=== PATIENT | male | born 1945 | race Asian ===

== ENCOUNTER 2017-06-02 14:48 | Emergency (ER) | payer OTHER ==
[~2017-06-02] VITALS: Ht 165.1 cm; Wt 61.2 kg
[2017-06-02 14:52] VITALS: BP_SYST 150
[2017-06-02 21:30] VITALS: BP_SYST 138
== END 2017-06-02 21:30 | disposition home or self-care (01) ==
LOC: SED 14:48
DX: S60.132A Contusion of left middle finger with damage to nail, initial encounter (principal); E11.9 Type 2 diabetes mellitus without complications; I10 Essential (primary) hypertension; W23.0XXA Caught, crushed, jammed, or pinched between moving objects, initial encounter; Y93.89 Activity, other specified; Y92.89 Other specified places as the place of occurrence of the external cause; Y99.8 Other external cause status
CPT/HCPCS: 99283